=== PATIENT | male | born 1990 | race Caucasian/White ===

== ENCOUNTER → 2016-09-10 | Outpatient (CLI) | payer SELFPAY ==
[~2016-09-10] MED LIST: AMOXICILLIN 8751 TAB PO; ERYTHROMYCIN5 MG/G1 OP; NO HOME MEDICATIONS; NORCO 325 MG-51 TAB PO; PERCOCET 325 MG1 TA2 PO; PERCOCET 325 MG1 TA3 PO; SILVADEN TOP
== END ==
LOC: COL.RAD 13:32
DX: M25.561 Pain in right knee (principal); Z98.890 Other specified postprocedural states

== ENCOUNTER 2017-09-09 20:29 | Emergency (ER) | payer SELFPAY ==
[2017-09-09 20:36] VITALS: TEMP 98.4
[2017-09-09 22:26] VITALS: BP 129/73; PULSE 87
== END 2017-09-09 22:27 | disposition home or self-care (01) ==
LOC: COL.ER 20:29
DX: S62.306A Unspecified fracture of fifth metacarpal bone, right hand, initial encounter for closed fracture (principal); W22.8XXA Striking against or struck by other objects, initial encounter
CPT/HCPCS: Q4021